=== PATIENT | male | born 1955 | race Caucasian/White ===

== ENCOUNTER 2024-09-17 11:16 | Emergency (ER) | payer OTHER ==
[2024-09-17 11:25] VITALS: BP 145/79; PULSE 77; RESP 18; BMI 30.8
[2024-09-17] MEDS: ACETAMINOPHEN 500 MG TABLET (FP) PO ONE ×2 (12:03→12:10)
[2024-09-17] MEDS ORDERED: ACETAMINOPHEN 500 MG TABLET (FP) ONE (12:05)
[2024-09-17 12:34] LABS: HEMATOCRIT 48.8 % (35.4-49); HEMOGLOBIN 15.5 G/dL (11.7-16.9); MCH 29.1 pg (25.7-33.7); MCHC 31.8 g/dl (32.0-35.9); MEAN CELL VOLUME 91.5 fl (80-96); MEAN PLT VOLUME 8.2 fl (7.5-11.1); PLATELET COUNT 223.4 10^3/uL (134-434); RBC 5.33 10^6/uL (4.00-5.60); RDW 13.7 % (11.9-15.9); WHITE BLOOD COUNT 10.3 10^3/uL (4.0-10.8)
[2024-09-17 12:47] LABS: ALBUMIN 4.3 g/dl (3.4-5.0); BILIRUBIN,TOTAL 0.5 mg/dl (0.2-1); CALCIUM 9.4 mg/dl (8.5-10.1); POTASSIUM 4.2 mmol/L (3.5-5.1); TOT PROT 6.8 g/dl (6.4-8.2)
[2024-09-17 13:01] LABS: PLATELET ESTIMATE ADEQUATE
[2024-09-17 13:13] VITALS: TEMP 100.4
== END 2024-09-17 14:12 | disposition home or self-care (01) ==
LOC: FER 11:16
DX: R55 Syncope and collapse (principal); J06.9 Acute upper respiratory infection, unspecified; B34.9 Viral infection, unspecified; R05.9 Cough, unspecified; Z20.822 Contact with and (suspected) exposure to COVID-19
CPT/HCPCS: 0241U-QW; 36415; 71046-TC-FY; 80053; 84484; 85027; 93005; 99285-25